=== PATIENT | female | born 1995 | race Asian ===

== ENCOUNTER 2017-03-03 11:14 | Inpatient (IN) | payer OTHER ==
[2017-03-03 11:40] LABS: Hematocrit 39 % (35-47); Hemoglobin 13.2 g/dl (12.0-16.0); Mean Corpuscular HGB Conc 34 g/dl (31-36); Mean Corpuscular Hemoglobin 31 pg (27-31); Mean Corpuscular Volume 91 fL (80-97); Mean Platelet Volume 7 um3 (7.4-10.4); Red Blood Count 4.26 10^6/ul (4.0-5.4); Red Cell Distribution Width 13 % (10.5-15); White Blood Count 6.8 10^3/ul (3.5-10.8)
[2017-03-03 12:00] LABS: ALT 9 U/L (7-52); AST 15 U/L (13-39); Albumin 4.3 g/dL (3.2-5.2); Alkaline Phosphatase 32 U/L (34-104); Anion Gap 6 mmol/L (2-11); BUN/Creatinine Ratio 18.2 (8-20); Blood Urea Nitrogen 14 mg/dL (6-24); CO2 Carbon Dioxide 25 mmol/L (22-32); Calcium 9.2 mg/dL (8.6-10.3); Chloride 108 mmol/L (101-111); EGFR African American 121.7 (>60); EGFR Non-African American 94.6 (>60); Globulin 2.9 g/dL (2-4); Glucose 105 mg/dL (70-100); Potassium 4.2 mmol/L (3.5-5.0); Sodium 139 mmol/L (133-145); Total Protein 7.2 g/dL (6.4-8.9)
[2017-03-03 12:08] LABS: Urine Bilirubin Negative (Negative); Urine Glucose Negative (Negative); Urine Nitrite Negative (Negative)
[2017-03-03 12:41] LABS: Benzodiazepine Urine Screen None Detected (None Detect)
[2017-03-03 12:42] LABS: TSH (Thyroid Stimulating Horm) 1.56 mcIU/mL (0.34-5.60)
[2017-03-03 12:46] LABS: Acetaminophen < 15 mcg/mL; Alcohol < 10 mg/dL (<10); Salicylate < 2.50 mg/dL (<30)
--- NOTE | 2017-03-04 11:26 | PN ---
MHU: Group Therapy Note - Service Type Service Type: [id number] Group Psychotherapy - Cognitive Behavioral Group Therapy ( CBT):Patient was attentive and participatory in CBT programming this morning, and remained in good behavioral control. Patient expressed positive insights regarding relevant treatment interventions and goals.
[2017-03-04] MEDS ORDERED: Ondansetron TAB* 4 MG PO PRN (11:36)
[2017-03-04] MEDS ORDERED: Acetaminophen TAB* 325 MG PO PRN (11:36)
[2017-03-04] MEDS ORDERED: Al Hydrox/Mg Hydrox/Simet LIQ* 30 ML UDC PO PRN (11:40)
[2017-03-04] MEDS: FLUoxetine CAP* 20 MG PO SCH (14:21)
[2017-03-04] MEDS: buPROPion TAB* 100 MG PO SCH (14:21)
--- NOTE | 2017-03-04 15:31 | ED ---
Bentley Lopez Alfonso, scribed for Matt Thorpe MD on 03/03/17 at 1224 . Psychiatric Complaint - HPI Summary HPI Summary: This patient is a 21 year old F BIBA to [facility] with a chief complaint of exacerbated suicidal thoughts since yesterday. She was sent by her counselor and psychiatrist from [place], where she attends school. The patient rates the pain 0/10 in severity. Symptoms aggravated by stress. Symptoms alleviated by medication (previously on Prozac and Buproprion, but stopped medication in December). Patient reports having suicidal thoughts (helium suffocation, euthanizing drugs, and jumping off bridges), and stress (being behind in classes). She denies insomnia, changes in appetite, recent ETOH and drug abuse. She denies chance of being . Patient denies additional stressors than usual though it hurts more because thought she was making a lot of progress last semester. Patient medically cleared for MHE at 1140. - History Of Current Complaint Chief Complaint: EDMentalHealth Time Seen by Provider: 03/03/17 11:21 Hx Obtained From: Patient Onset/Duration: Gradual Onset Timing: Constant Aggravating Factor(s): Recent Stress Alleviating Factor(s): Medication Related History: Positive For: Prior Psychiatric Issues Has Suicidal: Reports: Thoughts, With A Plan - Allergies/Home Medications Allergies/Adverse Reactions: Allergies Allergy/AdvReac Type Severity Reaction Status Date / Time No Known Allergies Allergy Verified 03/03/17 23:03 PMH/Surg Hx/FS Hx/Imm Hx Endocrine/Hematology History: Denies: Hx Anticoagulant Therapy, Hx Diabetes, Hx Thyroid Disease Cardiovascular History: Denies: Hx Congestive Heart Failure, Hx Deep Vein Thrombosis, Hx Hypertension , Hx Myocardial Infarction, Hx Pacemaker/ICD Respiratory History: Denies: Hx Asthma, Hx Chronic Obstructive Pulmonary Disease (COPD), Hx Lung Cancer, Hx Pneumonia, Hx Pulmonary Embolism GI History: Denies: Hx Gall Bladder Disease, Hx Gastrointestinal Bleed, Hx Ulcer, Hx Urosepsis History: Denies: Hx Kidney Stones, Hx Renal Disease Neurological History: Denies: Hx Dementia, Hx Migraine, Hx Seizures, Hx Transient Ischemic Attacks (TIA) Psychiatric History: Denies: Hx Anxiety, Hx Depression, Hx Schizophrenia, Hx Bipolar Disorder Infectious Disease History: No Infectious Disease History: Denies: Traveled Outside the US in Last 30 Days - Family History Known Family History: Negative: Cardiac Disease, Diabetes - Social History Alcohol Use: Occasionally Substance Use Type: Reports: None Smoking Status (MU): Never Smoked Tobacco Review of Systems Negative: Fever, Chills Negative: Erythema Negative: Sore Throat Negative: Chest Pain Negative: Shortness Of Breath, Cough Negative: Abdominal Pain, Vomiting, Nausea Negative: dysuria, hematuria Negative: Myalgia, Edema Negative: Rash Neurological: Other - Negative dizziness, insomnia, changes in appetite, recent ETOH and drug abuse Positive: Depressed - suicidal ideation All Other Systems Reviewed And Are Negative: Yes Physical Exam Triage Information Reviewed: Yes Vital Signs On Initial Exam: Initial Vitals Temp Pulse Resp BP Pulse Ox 99 F 75 16 127/75 100 03/03/17 11:21 03/03/17 11:21 03/03/17 11:21 03/03/17 11:21 03/03/17 11:21 Vital Signs Reviewed: Yes Appearance: Positive: Well-Appearing, No Pain Distress, Well-Nourished Skin: Positive: Warm, Dry Head/Face: Positive: Normal Head/Face Inspection Eyes: Positive: Conjunctiva Clear Neck: Positive: Other: - Musculoskeletal ROM normal neck. (-) JVD, (-) Stridor, (-) Tracheal deviation, (-) Cervical adenopathy Respiratory/Lung Sounds: Positive: Other - Effort normal. (-) Respiratory distress, (-) Wheezes, (-) Rales Cardiovascular: Positive: RRR, Other - Heart sounds normal; Intact distal pulses ; The pedal pulses are 2+ and symmetric. Radial pulses are 2+ and symmetric. (- ) Murmur Abdomen Description: Positive: Nontender, Soft, Other: - Negative rebound. Negative: Distended, Guarding Musculoskeletal: Negative: Edema Left, Edema Right Neurological: Positive: Alert, Oriented to Person Place, Time Psychiatric: Positive: Depressed - Flat Affect Diagnostics - Vital Signs Vital Signs Temp Pulse Resp BP Pulse Ox 03/03/17 11:21 99 F 75 16 127/75 100 - Laboratory Lab Results: Lab Results 03/03/17 03/03/17 03/03/17 Range/Units 11:28 11:28 11:40 WBC 6.8 (3.5-10.8) 10^3/ul RBC 4.26 (4.0-5.4) 10^6/ul Hgb 13.2 (12.0-16.0) g/dl Hct 39 (35-47) % MCV 91 (80-97) fL MCH 31 (27-31) pg MCHC 34 (31-36) g/dl RDW 13 (10.5-15) % Plt Count 335 (150-450) 10^3/ul MPV 7 L (7.4-10.4) um3 Neut % (Auto) 71.1 (38-83) % Lymph % (Auto) 19.6 L (25-47) % [place] % (Auto) 5.9 (1-9) % Eos % (Auto) 2.5 (0-6) % Baso % (Auto) 0.9 (0-2) % Absolute Neuts (auto) 4.9 (1.5-7.7) 10^3/ul Absolute Lymphs (auto) 1.3 (1.0-4.8) 10^3/ul Absolute Monos (auto) 0.4 (0-0.8) 10^3/ul Absolute Eos (auto) 0.2 (0-0.6) 10^3/ul Absolute Basos (auto) 0.1 (0-0.2) 10^3/ul Absolute Nucleated RBC 0 10^3/ul Nucleated RBC % 0 Sodium 139 (133-145) mmol/L Potassium 4.2 (3.5-5.0) mmol/L Chloride 108 (101-111) mmol/L Carbon Dioxide 25 (22-32) mmol/L Anion Gap 6 (2-11) mmol/L BUN 14 (6-24) mg/dL Creatinine 0.77 (0.51-0.95) mg/dL Est GFR ( Amer) 121.7 (>60) Est GFR (Non-Af Amer) 94.6 (>60) BUN/Creatinine Ratio 18.2 (8-20) Glucose 105 H (70-100) mg/dL Calcium 9.2 (8.6-10.3) mg/dL Total Bilirubin 0.30 (0.2-1.0) mg/dL AST 15 (13-39) U/L ALT 9 (7-52) U/L Alkaline Phosphatase 32 L (34-104) U/L Total Protein 7.2 (6.4-8.9) g/dL Albumin 4.3 (3.2-5.2) g/dL Globulin 2.9 (2-4) g/dL Albumin/Globulin Ratio 1.5 (1-3) TSH Pending Urine Color Yellow Urine Appearance Clear Urine pH 6 (5-9) Ur Specific [place] 1.015 (1.010-1.030) Urine Protein 1+(30 mg/dl) H (Negative) Urine Ketones Negative (Negative) Urine Blood 1+ H (Negative) Urine Nitrate Negative (Negative) Urine Bilirubin Negative (Negative) Urine Urobilinogen Negative (Negative) Ur Leukocyte Esterase Negative (Negative) Urine Glucose Negative (Negative) Salicylates Pending Acetaminophen Pending Serum Alcohol Pending Result Diagrams: 03/03/17 11:28 03/03/17 11:28 Lab Statement: Any lab studies that have been ordered have been reviewed, and results considered in the medical decision making process. Course/Dx - Course Assessment/Plan: This patient is a 21 year old F BIBA to [facility] with a chief complaint of exacerbated suicidal thoughts since yesterday. She was sent by her counselor and psychiatrist from [place], where she attends school. The patient rates the pain 0/10 in severity. Symptoms aggravated by stress. Symptoms alleviated by medication (previously on Prozac and Buproprion, but stopped medication in December). Patient reports having suicidal thoughts (helium suffocation, euthanizing drugs, and jumping off bridges), and stress (being behind in classes). She denies insomnia, changes in appetite, recent ETOH and drug abuse. She denies chance of being . Patient denies additional stressors than usual though it hurts more because thought she was making a lot of progress last semester. Patient medically cleared for MHE at 1140. After MHE , patient will be [facility] [place] [facility] - Differential Dx/Clinical Impression Provider Diagnosis: Depression with suicidal ideation Discharge - Discharge Plan Condition: Guarded Disposition: ADMITTED TO [facility] documentation as recorded by the Bentley duarte Alfonso accurately reflects the service I personally performed and the decisions made by me, Matt Thorpe MD.
--- NOTE | 2017-03-04 23:56 | HP ---
HISTORY AND PHYSICAL: DATE OF ADMISSION: 03/03/17 SUPERVISING PSYCHIATRIST: Dr. Elmer Wallis * (DICTATED BY NAI VELEZ NP) JUSTIFICATION FOR ADMISSION: The patient presented to the emergency department after an appointment with her psychiatric nurse practitioner at [facility]. She endorses depressed mood with suicidal ideation and plans to either create a helium bag or jump off a bridge. The patient merits hospitalization for immediate safety and stabilization. CHIEF COMPLAINT: "I have been staying in bed, not going to classes." HISTORY OF PRESENT ILLNESS: This is a first psychiatric hospitalization for a 21-year-old female who prefers to be called Daniella. She reports an increase in depressed mood since returning to college this fall. 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 She reports symptoms of depressed mood, decreased energy, hypersomnia, feeling overwhelmed, hopelessness , worthlessness, and excessive guilt. She has had thoughts of suicide with plans to create a helium bag or jump off of a bridge. She states that she has mild anxiety at times with no apparently triggers. She endorses heart racing and urgency to leave the room that she is in. She reports her appetite fluctuates and she is nauseous when anxious. The patient reports suicidal ideations this past July and recently she reports that she called [facility] in the fall and started going to see a therapist there. In July, she saw a psychiatric nurse practitioner, Dianelys Lawton, and was started on fluoxetine and Wellbutrin. She reports much improvement in mood and anxiety towards the end of the semester. She states that she went home to [place] over the summer and around December stopped taking the medications, because she did not want her family to know. She states that her family is in disagreement with diagnoses of mental health and would not agree with this. She states this is somewhat conflicting as her brother has a diagnosis of depression and has taken medications in the past and her family seems to support him and his symptoms and minimize hers. Daniella denies symptoms of OCD. She denies phobias, fears, or delusions. She denies eating disorders. She denies AV hallucinations or hypomanic periods. She denies HI, , or history of violent or aggressive behavior. PAST PSYCHIATRIC HISTORY: As stated above, the patient started therapy at [facility] in the fall and throughout her freshman year at [employer]. She also has been prescribed medications by Dianelys Lawton NP. Prozac was titrated up to 40 mg and Wellbutrin, she recalls to be 100 mg. She recently reengaged at [facility] and her current therapist is "Tomi"; she does not know how she is spelled. PAST MEDICAL HISTORY: The patient reports pneumonia twice and hospitalized as a small child. PAST SURGICAL HISTORY: Denies surgical history. GYNECOLOGICAL HISTORY: Last menstrual period 2 days ago. She denies need for testing for sexually transmitted diseases. PRIMARY CARE PROVIDER: [facility]. CURRENT MEDICATIONS: No current medications. ALLERGIES: No known drug allergies. FAMILY PSYCHIATRIC HISTORY: Brother depression with history of antidepressant medications in the past. She is not aware what this was. SOCIAL HISTORY: The patient is christos at [employer], studying Government and [employer]. She is one of 2 children by [place] born parents. She was born in [place] and was there until she was 9-years-old and the family moved to [place] [facility]. She graduated high school in [place] in 2014. She reports she has a boyfriend since the spring of this year and she spent some time with him in [facility]. He is a college graduate and currently working in [place]. She reports they use condoms for contraception. The patient denies legal and history. Denies substance use. REVIEW OF SYSTEMS: Negative for fever, chills, erythema, sore throat, chest pain, shortness of breath, cough. Negative for abdominal pain, vomiting, nausea. Negative for dysuria, hematuria. Negative for myalgia. Negative edema. Negative rash. Positive for depression and suicidal ideation. PHYSICAL EXAMINATION GENERAL: The patient is well appearing, in no pain or distress. She appears well nourished and stated age. VITAL SIGNS: Most recent vital signs, temp 98.6, pulse 71, respiratory rate 16 , O2 saturation 99%, and BP 109/64. Height 5 feet 2 inches, weight 134 pounds. HEENT: Head and Face: Normal head and face inspection. Eyes: Positive EOMI and PERRL. NECK: Normal range of motion, supple. RESPIRATORY: Lung sounds clear to auscultation. No shortness of breath. CARDIOVASCULAR: Heart regular rate and rhythm. Peripheral pulses present bilateral in upper and lower extremities. ABDOMEN: Soft, nontender. Bowel sounds x4. MUSCULOSKELETAL: Strength intact. Normal range of motion. SKIN: Warm and dry, reflects adequate perfusion. MENTAL STATUS EXAM: The patient is a [place], 21-year-old female, dressed in hospital scrubs, sitting crossed legged on her bed. She appears stated age. She is cooperative and pleasant with interview. She is alert and oriented x3. Concentration is fair. Her memory is 3/3. Her mood is "embarrassed." Affect is flat, congruent. Speech is soft and articulate. Thought process is logical , coherent. Mild poverty noted. Content of thought is positive for SI, denies SIB. Denies phobias, obsessions, delusions, or rituals. Her insight is good. Her judgment is good. Fund of knowledge is excellent. LABORATORY DATA: Obtained in the emergency department, CBC is grossly unremarkable. Chemistry is within normal limits. Glucose mildly high at 105. Urinalysis: 1+ protein, 1+ blood, presence of squamous epithelial cells, and amorphous crystals, this is likely due to her current menstruation. Toxicology is negative for salicylates, acetaminophen, or alcohol. Urine drug screen is negative. DIAGNOSES: Langley I: Major depressive disorder, moderate, recurrent. Langley II: Deferred. Langley III: No active medical problem. Langley IV: Severe stressors related to academic pressures and family interactions. Langley V: 50, estimated highest in last year . ASSESSMENT: Suzi, who goes by "Daniella" is a 21-year-old female christos at [employer], who responded well to counseling and psychiatric medications in her freshman year of college. She returned home over the summer to [place] and stopped taking medicines due to family's opposition in regards to mental health diagnosis. She has reinitiated services at [facility] and met with her psychiatric nurse practitioner yesterday. She voiced suicidal ideation with plans to use a helium bag or jump off a bridge and was agreeable with transportation to the emergency department for further evaluation. PLAN: Admit the patient to adult behavioral services unit on voluntary status. Code status is full. Safety checks every 15 minutes. Administer MMPI for diagnostic clarification. The patient is encouraged to participate in supportive milieu, individual sessions, and psychoeducational groups. We will reinstate fluoxetine and Wellbutrin and titrate medications to efficacy. We will monitor for mood and thought content. Estimated length of stay is 3 to 5 days. Discharge planning will include outpatient providers and family involvement only if the patient is agreeable. NAI VELEZ, RAY [id number]/[facility] #: [id number] [facility] CENTERChantal
[2017-03-05] MEDS: FLUoxetine CAP* 20 MG PO SCH (08:44)
[2017-03-05] MEDS: buPROPion TAB* 100 MG PO SCH (08:44)
--- NOTE | 2017-03-05 16:10 | PN ---
Subjective - Subjective Service Type: [id number] Hosp care 15 min low complexity Subjective: Patient presents as dysphoric with flat affect. She reports vague SI but less "impulsive and obsessive." She states she spoke with her mother on the phone last night. Her mother apologized for her reaction to Daniella and "thought she was strong enough to get through this." Her mother also encouraged her to "do whatever is best" for her. Daniella spoke with her brother and boyfriend, as well. She states she feels more relieved because "the people I care about know I'm ok" and also "guilty because I made them cry." She reports sleeping well and denies side effect from medications. Objective - Appearance Appearance: Healthy Appearing Dysmorphic Features: Yes Hygiene: Normal Grooming: Well Kept - Behavior Psychomotor Activities: Normal Exhibits Abnormal Movement: No - Attitude and Relatedness Attitude and Relatedness: Withdrawn Eye Contact: Fair - Speech Quality: Unpressured Latencies: Normal Quantity: Appropriate - Mood Patient's Decription of Mood: "Sad" - Affect Observed Affect: Depressed Affect Consistent with: Dysphoria - Thought Process Patient's Thought Process: Coherent Thought Content: Yes Passive Wish, No Suicidal Planning, No Homicidal Ideation, No Paranoid Ideation - Sensorium Experiencing Hallucinations: No, Sensorium is Clear Type of Hallucinations: Visual: No, Auditory: No, Command: No - Level of Consciousness Level of Consciousness: Alert Orientation: Yes Intact, Yes Orientated to Time, Yes Orientated to Place, Yes Orientated to Person - Impulse Control Impulse Control: Tenuous - Insight and Judgement Insight and Judgement: Fair - Group Participation Particating in Group Activities: Yes - Medication Management Medication Management Adherence: Yes Assessment - Assessment Merits Inpatient Hospitalization: For Immediate Safety, For Stabilization, For Discharge Planning, Pending Safe DC Plan Inpatient DSM-IV Dx: I: major depressive d/o, severe, recurrent Clinical Impression: Patient is a 21yo [place] christos with a history of depressed mood. She relapsed this past summer when stopped taking medications due to not wanting her family to know about them. She presented to [facility] and was sent to ED due to active suicidal ideation with a plan. Plan - Plan Treatment Plan: Name: LYLY CROWLEY Birthdate: 1995 [id number] Continue intensive acute psychiatric treatment. Will titrate medications and assess for efficacy. Monitor for mood and thought content. Decrease observation to q30min and allow staff pass. Continued Medication Management: Start Medication Medications: Current Medications Acetaminophen (Tylenol Tab*) 650 mg PO Q6H PRN PRN Reason: FEVER/PAIN Al Hydrox/Mg Hydrox/Simethicone (Maalox Plus*) 30 ml PO Q6H PRN PRN Reason: INDIGESTION Bupropion HCl (Wellbutrin Tab*) 100 mg PO DAILY [facility] Last Admin: 03/05/17 08:44 Dose: 100 mg Fluoxetine HCl (Prozac Cap*) 20 mg PO DAILY [facility] Last Admin: 03/05/17 08:44 Dose: 20 mg Ondansetron HCl (Zofran Tab*) 4 mg PO Q8H PRN PRN Reason: NAUSEA On 03/05 change Wellbutrin to Wellbutrin XL 150mg qam - Discharge Plan Discharge Plan: Outpatient Follow Up Outpatient Program: Counseling/Psych Services at [place]
[2017-03-06 07:44] VITALS: BP 121/70
[2017-03-06] MEDS: FLUoxetine CAP* 20 MG PO SCH (08:34)
[2017-03-06] MEDS ORDERED: BuPROPion XL* 150 MG TAB.XL PO SCH (09:00)
--- NOTE | 2017-03-06 15:12 | DS ---
CC: [facility]* DATE OF ADMISSION: 03/03/2017. DATE OF DISCHARGE: 03/06/2017. SUPERVISING PSYCHIATRIST: Dr. Elmer Wallis* (dictated by GLEN Carter) . DISCHARGE DIAGNOSES: AXIS I: Major depressive disorder, generalized anxiety disorder. AXIS II: Deferred. AXIS III: No active medical problem. AXIS IV: Stressors related to academic course load and interpersonal relationships. AXIS V: 65. CONDITION AT THE TIME OF DISCHARGE: Improved. The patient is euthymic with a bright affect. She has good eye contact and is well-groomed. She reports feeling "better" and denies active suicidal ideation. She states that she would prefer to leave today verses staying here over the weekend in order to spend time with friends and identify coursework that she needs to catch up on. She agrees to follow-up with a therapist today who is available for a walk-in appointment and she will follow-up with her primary therapist, Dr. Deng, and her nurse practitioner, Dianelys Lawton, next week. MENTAL STATUS EXAM: The patient is well-groomed, wearing her own clothing, hair is down and she is wearing glasses. She is euthymic with a bright affect and good eye contact. She is alert and oriented times three. Her concentration is good. Her mood is "better." She is noted to be interactive in the milieu with select peers and staff. Speech is soft and articulate. Thought process is logical, coherent, and goal directed. Content of thought is negative for active SI. Denies SIB. Her insight is good. Her judgment is good. Her fund of knowledge is excellent. DISCHARGE INSTRUCTIONS: Instructions were given to the patient by nursing staff. A. Medications: Wellbutrin XL 150 mg p.o. q.a.m., quantity of 7; Fluoxetine 20 mg p.o. q.a.m., quantity 7. These were electronically prescribed to [facility]. It is recommended that she increase this to 40 mg with her outpatient provider. B. Diet: Regular. C. Ambulation as tolerated. Tobacco cessation is not applicable and there are no pending labs or diagnostic studies at the time of discharge. D. Follow-up care: As stated above. She has a walk-in appointment with Dalila Conner at [facility] today at 3:20. After that, she will make an appointment with both her primary therapist, Dr. Hank Deng, and nurse practitioner, Dianelys Lawton. HOSPITAL COURSE: A. Reason for admission: The patient presented to the emergency department after an appointment with her psychiatric nurse practitioner at [place]. She endorses depressed mood with suicidal ideation and plans to either create a helium bag or jump off a bridge. B. Psychiatric treatment rendered: The patient was admitted to the Adult Behavioral Services Unit on voluntary status. Code status is full. Safety checks are every 15 minutes. She completed an MMPI for diagnostic clarification. She was encouraged to participate in supportive milieu, individual sessions, and psychoeducational groups. Previous outpatient medications were reinstated: Fluoxetine at 20 mg and Bupropion 100 mg; she tolerated these well with no side effects. Bupropion was increased to extended release at 150 mg q.a.m. Observation status was decreased to q.30 minutes and she was allowed to go on staff pass. She slept and ate well and was interactive on the unit. The patient requested to be released and reported plans for the weekend, including spending time with friends and catching up on coursework. The patient remains at a slightly elevated risk for suicide, but prognosis is good with medication and outpatient therapy. Due to an obligation to treat in a less restrictive setting, the patient will be discharged. She has been safe on all checks and denies active suicidal ideation. The patient is encouraged to return to the ED if symptoms worsen or return. GLEN CARTER [id number]/[facility] #: [id number]
== END 2017-03-06 14:40 | disposition home or self-care (01) | DRG 885 ==
LOC: ED 11:14 → BSU 22:29
PROVIDERS: ADMIT Psychiatry & Neurology Psychiatry; ATTEND Psychiatry & Neurology Psychiatry
PROC: GZHZZZZ Group Psychotherapy (ICD-10-PCS; principal; 2017-03-04)
DX: F33.1 Major depressive disorder, recurrent, moderate (principal); R45.851 Suicidal ideations; F41.1 Generalized anxiety disorder; Z87.01 Personal history of pneumonia (recurrent); Z81.8 Family history of other mental and behavioral disorders
CPT/HCPCS: 36415; 80053; 80307; 80320; 80329; 81003; 81015; 84443; 85025; 90853; 99222; 99231; 99238; A9270-GY; G0480